=== PATIENT | female | born 1990 | race Two or more races ===

== ENCOUNTER 2020-06-19 06:54 | Emergency (ER) | payer MEDICAID, OTHER ==
[~2020-06-19] VITALS: Ht 160 cm; Wt 90.7 kg
[2020-06-19 08:38] VITALS: BP 131/92
[2020-06-19] MEDS ORDERED: ONDANSETRON ODT 4 MG TAB PO ONE (10:15)
[2020-06-19] MEDS ORDERED: traMADol HCL 50 MG TAB PO ONE (10:15)
== END 2020-06-19 12:40 | disposition home or self-care (01) ==
LOC: ER 06:54 → EDBD 06:54 → ER 12:38
DX: S16.1XXA Strain of muscle, fascia and tendon at neck level, initial encounter (principal); S93.402A Sprain of unspecified ligament of left ankle, initial encounter; V49.9XXA Car occupant (driver) (passenger) injured in unspecified traffic accident, initial encounter; Y93.89 Activity, other specified; Y92.89 Other specified places as the place of occurrence of the external cause; Y99.8 Other external cause status
CPT/HCPCS: 72040; 72125; 73562; 73610; 99284; Q0162